=== PATIENT | female | born 1945 | race Caucasian/White ===

== ENCOUNTER 2017-03-27 18:39 | Emergency (ER) | payer OTHER ==
[~2017-03-27] VITALS: Ht 149.9 cm; Wt 84.5 kg
[2017-03-27] MEDS ORDERED: DIOVAN320 MG PO (18:55)
[2017-03-27] MEDS ORDERED: DIGOX125 MCG PO (18:56)
[2017-03-27] MEDS ORDERED: LOPRESSOR HC1 TABLET PO (18:56)
[2017-03-27] MEDS ORDERED: IMDUR60 MG PO (18:56)
[2017-03-27] MEDS ORDERED: ELIQUIS5 MG PO (18:57)
[2017-03-27] MEDS ORDERED: LIPITOR10 MG PO (18:57)
[2017-03-27] MEDS ORDERED: ATIVAN1 MG PO (18:58)
[2017-03-27 19:01] LABS: EOSINOPHIL (%) 1.4 % (0-5); EOSINOPHIL COUNT 0.2 K/uL (0-0.3); HEMATOCRIT 41.9 % (36.0-46.0); IMMATURE GRANULOCYTE (%) 0.7 % (0.0-0.7); IMMATURE GRANULOCYTE COUNT 0.1 K/uL; LYMPHOCYTE COUNT 2.6 K/uL (1.0-2.8); MCHC 31.7 G/DL (30.0-36.0); MCV 88.2 FL (83-99); MEAN PLAT.VOLUME 10.2 uM^3 (9.5-12.4); MONOCYTE (%) 6.7 % (3-12); MONOCYTE COUNT 0.9 K/uL (0-0.8); NEUTROPHIL (%) 70.4 % (45-76); PLATELET COUNT 255 K/uL (156-360); RBC DIS.WIDTH-CV 13.7 % (11.8-14.6); RBC DIS.WIDTH-SD 44.4 % (39-53); RED BLOOD COUNT 4.75 M/uL (3.80-5.20); WHITE BLOOD COUNT 12.8 K/uL (4.1-10.2)
[2017-03-27 19:02] LABS: CREATININE 0.9 mg/dL (0.6-1.3); POTASSIUM 3.8 mEq/L (3.7-5.4)
[2017-03-27 19:08] LABS: INTER. NORMALIZED RATIO 1.1; PROTHROMBIN TIME 12.6 SEC (10.2-12.9)
[2017-03-27 19:09] LABS: AMYLASE 40 IU/L (1-118); CHLORIDE 102 mEq/L (99-109); POTASSIUM 3.8 mEq/L (3.7-5.4); SODIUM 141 mEq/L (136-147)
[2017-03-27 19:10] LABS: GLUCOSE 140 mg/dL (70-99)
[2017-03-27 19:11] LABS: PTT 34.5 SEC (25-37)
[2017-03-27 19:12] LABS: ANION GAP 12 MEQ/L (2-14)
[2017-03-27 19:13] LABS: SERUM ETHYL ALCOHOL < 10 mg/dL
[2017-03-27 19:15] LABS: GFR ESTIMATE (CALCULATED) > 59 mL/min/; UREA NITROGEN (BUN) 23 mg/dL (9-23)
[2017-03-27 19:17] LABS: LIPASE 47 U/L (1.0-51.0)
[2017-03-27 19:23] LABS: TROP-I INTERPRETATION NEGATIVE; TROPONIN-I < 0.01 ng/mL (0.0-0.30)
[2017-03-27 20:30] VITALS: BP 132/88
== END 2017-03-27 20:40 | disposition short-term general hospital (02) ==
LOC: EME 18:39
PROVIDERS: Emergency Medicine
DX: I63.9 Cerebral infarction, unspecified (principal); R47.81 Slurred speech; R29.810 Facial weakness; G81.94 Hemiplegia, unspecified affecting left nondominant side; I66.01 Occlusion and stenosis of right middle cerebral artery; I48.91 Unspecified atrial fibrillation; I10 Essential (primary) hypertension; Z79.01 Long term (current) use of anticoagulants
CPT/HCPCS: 70450; 70496; 70498; 71010; 80047; 80048; 81003; 82150; 83605; 83690; 84484; 85025; 85610; 85730; 86850; 86900; 86901; 93005; 99281; 99285; G0480; J7040